=== PATIENT | male | born 1985 | race African-American/Black ===

== ENCOUNTER 2019-02-26 00:14 | Observation (INO) | payer SELFPAY ==
[2019-02-26] MEDS ORDERED: Acetaminophen 325 MG TAB PO PRN (01:19)
[2019-02-26] MEDS ORDERED: HYDROcodone/Acetaminophen 5/325 mg Tablet PO PRN (01:19)
[2019-02-26] MEDS ORDERED: Senokot S 8.6-50 MG TAB PO PRN (01:19)
[2019-02-26] MEDS ORDERED: Benzonatate 100 MG CAP PO PRN (01:23)
[2019-02-26] MEDS ORDERED: Diabetic Tussin 200 MG/10 ML UDCUP PO PRN (01:23)
[2019-02-26 02:16] VITALS: BMI 29.3
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
[2019-02-26 04:11] LABS: #Basophils 0.1 thou/uL (0.0-0.2); #Eosinphils 0.4 thou/uL (0.0-0.7); #Lymphocytes 1.7 thou/uL (1.20-3.40); #Monocytes 0.7 thou/uL (0.11-0.59); #Neutrophils 4.3 thou/uL (1.40-6.50); %Basophils 1.1 % (0.0-1.0); %Eosinophils 5.3 % (0.0-10.0); %Monocytes 9.9 % (0.0-10.0); %Neutrophils 59.8 % (42.0-75.0); Hemoglobin 13.7 g/dL (14.0-18.0); Mean Corpuscular HGB CONC 32.6 g/dL (32.0-36.0); Mean Corpuscular Hemoglobin 30.7 pg (27.0-31.0); Mean Platelet Volume 9.3 fL (7.4-10.4); Platelet Count 181 thou/uL (130-400); RBC Distribution Width 13.1 % (11.5-14.5); Red Blood Cell (RBC) Count 4.48 mill/uL (4.70-6.10); White Blood Cell (WBC) Count 7.2 thou/uL (4.8-10.8)
[2019-02-26 04:26] LABS: Anion Gap 11 mmol/L (10-20); BUN (Urea Nitrogen) 12 mg/dL (8.9-20.6); Calc. Creatinine Clearance 144 mL/min (70-130); Calcium 9.2 mg/dL (7.8-10.44); Carbon Dioxide 25 mmol/L (22-29); Cardiac Risk 2.9 (Less than 4.5); Chloride 107 mmol/L (98-107); Cholesterol 131 mg/dl (< 200 Desired); Estimated GFR-MDRD Greater than 90; Glucose 85 mg/dL (70-105); HDL Cholesterol 45 mg/dL (>60 Neg Risk); LDL Cholesterol, Calculated 78 mg/dL; Potassium 3.7 mmol/L (3.5-5.1); Sodium 139 mmol/L (136-145); Triglycerides 42 mg/dL (Less than 150)
[2019-02-26 04:31] LABS: Troponin I 0.015 ng/mL (< 0.028)
[2019-02-26] MEDS ORDERED: Aspirin 325 MG TAB PO SCH (08:00)
[2019-02-26] MEDS ORDERED: Famotidine 20 MG TAB PO SCH (09:00)
[2019-02-26] MEDS ORDERED: Enoxaparin Sodium 40 MG/0.4 ML SYRINGE SC SCH (09:00)
[2019-02-26] MEDS ORDERED: Colchicine 0.6 MG TAB PO SCH ×2 (11:00→21:00)
--- NOTE | 2019-02-26 11:30 | NM ---
EXAM: Nuclear medicine cardiac perfusion examination with ejection fraction HISTORY: Chest pain TECHNIQUE: Rest images: 10.1 mCi technetium 99m sestamibi Stress images: 32.0 mCi of technetium 9M sestamibi; Lexiscan COMPARISON: None FINDINGS: Tomographic images: No fixed or reversible perfusion defects. Gated images: Normal wall motion and ejection fraction of 45%. EDV: 168 mL LHR: 0.36 TID: 1.04 IMPRESSION: No evidence of ischemia
[2019-02-26] MEDS ORDERED: Regadenoson 0.4 MG/5 ML SYRINGE ONE (11:56)
[2019-02-26] MEDS ORDERED: Amlodipine 5 MG TAB PO SCH (15:30)
[2019-02-26 15:47] VITALS: BP 163/97; TEMP 98.5
[2019-02-26] MEDS ORDERED: ISOVUE-370 76%-LOCM 1 ML ONE (16:05)
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
--- NOTE | 2019-02-26 16:42 | CT ---
Contrast-enhanced CTA chest. HISTORY: Chest pain. 2-D and 3-D reconstruction images performed on an independent 3-D workstation. Contrast-enhanced CTA chest demonstrates the lung parenchyma to be unremarkable. No evidence of hemat nani or pneumothorax seen. The mediastinum is unremarkable. The aorta is unremarkable with no evidence of dissections or aneurys ms. No evidence of filling defects seen in the pulmonary arteries to suggest pulmonary emboli. No evidence of pleural or pericardial effusion seen. IMPRESSION: Normal CTA chest.
--- NOTE | 2019-02-26 18:53 | DIS ---
DATE OF ADMISSION: 02/26/2019 DATE OF DISCHARGE: 02/26/2019 CHIEF COMPLAINT: Chest pain. FINAL DIAGNOSES: 1. Atypical, pleuritic-type chest pain in the setting of cough and upper respiratory infection, MPI negative for ischemia. 2. Upper respiratory infection, likely viral. 3. Newly diagnosed hypertension. 4. Newly diagnosed left ventricular hypertrophy. CONSULTANTS: Dr. Drake. HOSPITAL COURSE: The patient is a 33-year-old, current inmate of [facility] with no prior past medical history, who presented to the hospital with complaints of worsening chest pain. He states that he had some midsternal chest discomfort, which he describes as pressure after his coughing spells. He also had some nasal congestion. The patient was taken to the [facility], where a 12-lead EKG showed ST depression inferolaterally. He was transferred to our facility for workup and care. His serial troponins were negative and ACS was ruled out. He did undergo MPI, which was negative for reversible ischemia, however, showed an EF of 45%. Dr. Drake did order an echo at that time, which showed concentric left ventricular hypertrophy. The patient was fairly hypertensive on his arrival with a blood pressure of 150/100. He did not have any prior diagnosis of hypertension. He was placed on amlodipine. Beta marychuy was avoided in the setting of heart rate and underlying in the 60s. CT of the chest with contrast was performed to further assess his thoracic aorta, which showed no evidence of dissection or enlargement. The patient has had no fever or white count since he has been here. His cough has been treated supportively. He has no exertional chest discomfort or shortness of breath. No nausea or vomiting. DISCHARGE DISPOSITION: Nursing Home. DISCHARGE MEDICATIONS: Amlodipine 5 mg daily, aspirin 81 mg daily x30 days. Naproxen 500 mg b.i.d. x3 days. Tessalon Perles 100 mg capsule one capsule p.o. q.6 hours p.r.n. cough. DISCHARGE INSTRUCTIONS: The patient will continue aggressive risk factor modification and continue to monitor his blood pressure. He will continue the above medications, and seek routine medical care and blood pressure checks. He has been cleared for discharge by Dr. Drake. The care of this patient has also been discussed with Dr. Calles, who agrees with care as outlined above. Job ID: [id number]
[2019-02-27] MEDS ORDERED: Amlodipine 5 MG TAB PO SCH (09:00)
== END 2019-02-26 17:59 ==
LOC: ERS 00:14 → EEVIPCON 00:14 → 2SW 02:07
PROVIDERS: ADMIT Hospitalist; ATTEND Hospitalist
DX: R07.1 Chest pain on breathing (principal); J06.9 Acute upper respiratory infection, unspecified; I11.0 Hypertensive heart disease with heart failure
CPT/HCPCS: 36415; 71275; 78452; 80048; 80061; 83880; 84443; 84484; 85025; 87633; 93017; 93306; 96372; 99285; A9500; G0378; J1650; J2785; Q9966